=== PATIENT | female | born 1995 | race Caucasian/White ===

== ENCOUNTER 2018-02-05 11:26 | Emergency (ER) | payer MEDICAID ==
[~2018-02-05] VITALS: Ht 165.1 cm; Wt 104.0 kg
[2018-02-05 11:49] VITALS: BP 160/99
== END 2018-02-05 16:02 | disposition left against medical advice (07) ==
LOC: ER 13:27
DX: R10.9 Unspecified abdominal pain (principal); Z53.21 Procedure and treatment not carried out due to patient leaving prior to being seen by health care provider